=== PATIENT | male | born 1980 | race African-American/Black ===

== ENCOUNTER → 2016-11-25 09:07 | Outpatient (CLI) | payer OTHER | END | disposition home or self-care (01) | LOC: D.CT 09:00 | DX: I10 Essential (primary) hypertension (principal) ==

== ENCOUNTER → 2018-07-25 06:55 | Outpatient (CLI) | payer OTHER | END | disposition home or self-care (01) | LOC: D.CT 06:55 | DX: R91.8 Other nonspecific abnormal finding of lung field (principal) ==